=== PATIENT | female | born 1960 | race Caucasian/White ===

== ENCOUNTER 2017-05-22 14:15 | Emergency (ER) | payer OTHER ==
[~2017-05-22] VITALS: Ht 160 cm; Wt 65.0 kg
[2017-05-22 14:17] VITALS: BP 184/99; PULSE 64; RESP 16; TEMP 98.4; O2SAT 98
--- NOTE | 2017-05-22 14:38 | PD ---
HPI Chief Complaint: Injury Time Seen by Provider: 14:37 Travel History International Travel<30 days: No Contact w/Intl Traveler<30days: No Traveled to known affect area: No History of Present Illness HPI 57-year-old female presents to the emergency department for evaluation of left shoulder pain. Patient states she had a trip and fall last evening landing on her left shoulder. She states she is unable to move the arm due to the pain. Pain is an 8 out of 10, constant, throbbing, exacerbated with movement. No alterations in the affected extremity. She did not strike her head or lose consciousness. She has no other symptoms to report. PFSH Past Medical History Hypertension: Yes Social History Alcohol Use: No Tobacco Use: No Substance Use: No Allergies-Medications (Allergen,Severity, Reaction): Coded Allergies: Penicillins (Verified Allergy, Severe, Hives, 05/22/17) Reported Meds & Prescriptions Reported Meds & Active Scripts Active Lortab (Hydrocodone-Acetaminophen) 5-325 Mg Tab 1 Tab PO Q6H PRN Ibuprofen 600 Mg Tab 600 Mg PO Q8HR PRN Reported Lisinopril 10 Mg Tab 10 Mg PO DAILY Review of Systems Except as stated in HPI: all other systems reviewed are Neg Physical Exam Narrative GENERAL: Well-nourished, well-developed email patient in no acute distress SKIN: Focused skin assessment warm/dry. HEAD: Normocephalic. Atraumatic EYES: No scleral icterus. No injection or drainage. NECK: Supple, trachea midline. No JVD or lymphadenopathy. CARDIOVASCULAR: Regular rate and rhythm without murmurs, gallops, or rubs. RESPIRATORY: Breath sounds equal bilaterally. No accessory muscle use. MUSCULOSKELETAL: No cyanosis, or edema. Tenderness also palpation of the left proximal upper extremity. No obvious deformity. Patient is reluctant to move the shoulder secondary to pain. Distal pulses are palpable. Cap refill within normal limits. BACK: Nontender without obvious deformity. No CVA tenderness. Data Data Last Documented VS Vital Signs Date Time Temp Pulse Resp B/P (MAP) Pulse Ox O2 Delivery O2 Flow Rate FiO2 05/22/17 15:21 05/22/17 14:17 98.4 64 16 98 Orders Orders Acetamin-Hydrocod 325-5 Mg (Ivor 5-325 (05/22/17 14:45) Shoulder, Limited(2vws) (05/22/17 ) Support Splint (05/22/17 15:15) Sling Cradle Arm (05/22/17 ) MDM Medical Decision Making Medical Screen Exam Complete: Yes Emergency Medical Condition: Yes Medical Record Reviewed: Yes Differential Diagnosis Fracture versus sprain versus contusion versus dislocation Narrative Course 57-year-old female presents to the emergency room for evaluation of an injury to her left upper extremity. X-ray imaging is complete and shows a proximal humeral fracture. Patient is placed in a sling. She has been medicated for pain. She is counseled on care. She is encouraged to seek orthopedic evaluation return immediately with any acute worsening of symptoms. Diagnosis Primary Impression: Proximal humeral fracture Qualified Codes: S42.292A - Other displaced fracture of upper end of left humerus, initial encounter for closed fracture Referrals: Orthopaedic Surgeon Primary Care Physician Patient Instructions: Arm Fracture in Adults (ED), General Instructions Additional Instructions: Ice to the affected area 20 minutes on, 20 minutes off Sling for support. Follow-up with an orthopedic surgeon. Contact them this week for follow-up Return immediately to the emergency department with any acute worsening of symptoms Med/Other Pt SpecificInfo: Prescription(s) given Scripts Hydrocodone-Acetaminophen (Lortab) 5-325 Mg Tab 1 TAB PO Q6H Y for PAIN GREATER THAN 6, #15 TAB 0 Refills Prov: Tanisha Gutierrez 05/22/17 Ibuprofen (Ibuprofen) 600 Mg Tab 600 MG PO Q8HR Y for PAIN, #30 TAB 0 Refills Prov: Tanisha Gutierrez 05/22/17 Disposition: 01 DISCHARGE HOME Condition: Stable Tanisha Gutierrez May 22, 2017 14:38
[2017-05-22] MEDS ORDERED: LISI10TA3 PO (14:40)
[2017-05-22] MEDS ORDERED: ACETAMINOPHEN/HYDROcodone 325 MG/5 MG TAB PO ONE (14:45)
--- NOTE | 2017-05-22 15:03 | RADRPT ---
EXAM DATE/TIME: 05/22/2017 15:01 [facility] COMPARISON: No previous studies available for comparison. INDICATIONS : Pain post fall. MEDICAL HISTORY : None. SURGICAL HISTORY : None. ENCOUNTER: Initial ACUITY: 1 day PAIN SCORE: 8/10 LOCATION: Left Shoulder. FINDINGS: Minimally impacted slightly displaced fracture of the humeral surgical neck. Glenohumeral and acromia l clavicular joints or maintained. Remaining visualized osseous structures are intact. Visualized por tions of the lungs are clear. CONCLUSION: 1. Left humeral surgical neck fracture, as above. Reno Dailey MD on May 22, 2017 at 15:00 Board Certified Radiologist. This report was verified electronically.
[2017-05-22] MEDS ORDERED: HYDR-3533 PO (15:18)
[2017-05-22] MEDS ORDERED: IBUP-232 PO (15:18)
== END 2017-05-22 15:33 | disposition home or self-care (01) ==
LOC: EDTENT 14:15
DX: S42.202A Unspecified fracture of upper end of left humerus, initial encounter for closed fracture (principal); I10 Essential (primary) hypertension; W01.0XXA Fall on same level from slipping, tripping and stumbling without subsequent striking against object, initial encounter; Z88.0 Allergy status to penicillin; Z79.899 Other long term (current) drug therapy
CPT/HCPCS: 73030; 99283